=== PATIENT | female | born 1995 | race Caucasian/White ===

== ENCOUNTER 2019-06-30 00:12 | Outpatient (CLI) | payer SELFPAY ==
[~2019-06-30] VITALS: Ht 142.2 cm; Wt 66.4 kg
--- NOTE | 2019-06-30 00:35 | NUR ---
Pt arrived on unit ambulatory escorted by and with complaints of decreased movement. Pt djiboutian speaking only. Via fleet operations manager pt denies contractions, leaking of fluid or vaginal bleeding. Pt reports some lower abdominal pain but reports it as muscle pain after being on her feet all day and not stomach tightening. EFM and toco monitors started. Audible and palable movement while placing monitors. Vital signs WNL. Spoke with Dr. Montoya regarding pt arrival. FHR tracing and pt's complaints reviewed.
--- NOTE | 2019-06-30 01:15 | NUR ---
Pt reports feeling better after hearing heart beat and reports feeling movement since arrival on unit. Update given to Dr. Montoya. Orders for discharge home received.
[2019-06-30 01:26] VITALS: BP 104/64; PULSE 80
[2019-06-30] MEDS ORDERED: PRENATAL (01:32)
--- NOTE | 2019-06-30 01:35 | NUR ---
Discharge instructions reviewed with pt and via promotions producer. Both verbalized an understanding, agreed with the plan and states no questions or concerns at this time.
== END 2019-06-30 01:42 | disposition home or self-care (01) ==
LOC: LDRO 00:12 → COL.ER 00:12 → EDSTATUS 00:14 → LDRO 01:42
DX: O36.8120 Decreased fetal movements, second trimester, not applicable or unspecified (principal); Z3A.27 27 weeks gestation of pregnancy

== ENCOUNTER 2019-08-10 04:26 | Outpatient (CLI) | payer SELFPAY ==
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
[~2019-08-10 04:26] MED LIST: PRENATAL
[2019-08-10 05:10] VITALS: BP 109/69; PULSE 99; TEMP 98.5
--- NOTE | 2019-08-10 05:25 | NUR ---
TEXTURE ARTIST HERE FOR RCPD INTERVIEWING PT
--- NOTE | 2019-08-10 06:45 | NUR ---
DELONTE HAN HAS COMPLETED INTERVIEWING PT. DR NICHOLS SHOWN EFM TRACING.DISCHARGE ORDERS REDCIEVED
== END 2019-08-10 07:10 | disposition home or self-care (01) ==
LOC: LDRO 04:26 → LDR 05:34 → LDRO 07:10
DX: O26.899 Other specified pregnancy related conditions, unspecified trimester (principal); Z3A.00 Weeks of gestation of pregnancy not specified
CPT/HCPCS: OP

== ENCOUNTER 2019-10-04 03:30 | Outpatient (CLI) | payer SELFPAY ==
[~2019-10-04] VITALS: Ht 142.2 cm; Wt 75.5 kg
--- NOTE | 2019-10-04 03:20 | NUR ---
To unit for labor assessment, accompanied by spouse. Pt doesn't speak or understand Romanian, spouse with very limited understanding. With google translate, spouse says "pain and like blood" On monitor. SVE with mucous discharge, amniotrace negative, no pooling. Pt does not tolerate cervix check well, unable to reach cervix.
--- NOTE | 2019-10-04 05:05 | NUR ---
Repeat SVE with no changes. Attempt to explain discharge to spouse, unsuccessful, even with google translate. phone translation line called. Pt very hesitant to talk on phone, spouse tells her it's ok. Discharge instructions reviewd through phone full time staff interpreter.
[2019-10-04 05:50] VITALS: BP 133/85; PULSE 68; TEMP 98.9
--- NOTE | 2019-10-04 05:50 | NUR ---
Ambulatory off unit with spouse.
== END 2019-10-04 05:50 | disposition home or self-care (01) ==
LOC: LDRO 03:30
DX: O26.893 Other specified pregnancy related conditions, third trimester (principal); R52 Pain, unspecified; Z3A.40 40 weeks gestation of pregnancy

== ENCOUNTER 2019-10-04 15:15 | Inpatient (IN) | payer SELFPAY ==
[2019-10-04] VITALS (27 sets, daily range): BP systolic 106–134; BP diastolic 54–94; PULSE 73–144; TEMP 97.6–98.6
[~2019-10-04] VITALS: Ht 142.2 cm; Wt 75.5 kg
--- NOTE | 2019-10-04 15:30 | NUR ---
Pt arrives on unit via wheelchair with spouse. EFM and toco applied. VSS. SVE per this RN /-2. Difficulty translating. Translation phone used. Pt updated on plans for admission. Requests epidural. Admission assessment complete. Consents signed. Pt updated on POC. Oriented to room. No questions or concerns at thiss time.
[2019-10-04 16:16] LABS: BASO % 0.2 % (0.0-2.0); EOS % 0.3 % (0-4.0); GRAN # 6.5 (1.4-6.5); GRAN % 75.4 % (42.2-75.2); HEMOGLOBIN 11.5 g/dl (12.5-16.0); LYMPH # 1.6 (1.2-3.4); LYMPH % 18.1 % (20.0-51.0); MEAN CELL VOLUME 81 fl (80.0-100.0); MEAN CORPUSCULAR HEMOGLOBIN 27 pg (27.0-31.0); MEAN CORPUSCULAR HGB CONC 34 g/dl (33.0-37.0); MEAN PLATELET VOLUME 12.9 fl (7.4-10.4); MONO # 0.5 (0.1-0.6); MONO % 5.4 % (1.7-9.3); PLATELET COUNT 137 K/mm3 (130-400); REDCELL DISTRIBUTION WIDTH-CV 14.4 % (11.5-14.5)
[2019-10-04 16:20] LABS: HEMATOCRIT 33.8 % (37.0-47.0)
--- NOTE | 2019-10-04 16:45 | NUR ---
Anesthesia here, visits with patient.1652 Catheter placed by anesthesia Cielo Sullivan. 1653 Test dose given by anesthesia. Lies down after epidural.
--- NOTE | 2019-10-04 17:25 | NUR ---
Catheter placed per sterile technique.
--- NOTE | 2019-10-04 18:30 | NUR ---
1825: Bedside shift report from Isi Schilling RN. Patient resting quietly in bed. SVE -/80/-2. Roles at nurses station and reviewing FHR and contractions on monitor.
--- NOTE | 2019-10-04 19:30 | NUR ---
0: Pitocin started at 2ml/hr per Dr. Chavez order. Patient resting comfortably in bed. Denies pain.
--- NOTE | 2019-10-04 20:35 | NUR ---
2034: Roles at nurses station and reviews FHR and contraction pattern. Report on SVE and patient resting comfortably.
--- NOTE | 2019-10-04 21:10 | NUR ---
Roles at nurses station and review FHR and contraction pattern. To patient room. SVE per Roles /-1. Pitocin increased to 8ml/hr per Roles verbal order. Patient resting in bed, denies pain but feels pressure in vagina during contractions. remains at bedside and call light in reach.
--- NOTE | 2019-10-04 21:34 | NUR ---
Wallet found at Admissions by Housekeeping, who turned it into Security. Security notified this Appliance Line Assembler, and brought wallet to House Supervisors. Identification in wallet belonged to patient in Labor Room 3. Patient and significant other asked to describe wallet by SOCO Gutierrez. Wallet described. Security listed contents of wallet: 44-$100 dollar bills, 1-$1 dollar bill, 2 keys, Torres Anna identification, Wallace Savita DeSantigago identification. Contents returned to patient and significant other in room by this Appliance Line Assembler, Malcolm Kirk shipping supervisor, and SOCO Gutierrez patient nurse. Patient's significant other counted money with 3 RNs as witnesses. Contents of wallet identical to above description by Security. Patient and significant other satisfied with condition and contents of wallet and money ($[id number]).
--- NOTE | 2019-10-04 21:50 | NUR ---
Patient states she is having pressure in vagina during contractions. SVE 9-10/100/-1. Patient denies pain, just pressure.
--- NOTE | 2019-10-04 22:02 | NUR ---
Roles remains at nurses station and reviews FHR and contraction pattern on FHR monitor
--- NOTE | 2019-10-04 22:20 | NUR ---
Roles in room. JORGE L anterior lip. Patient repositioned to far right lateral and peanut ball placed. patient resting in bed, at bedside.
--- NOTE | 2019-10-04 22:38 | NUR ---
2238: patient shaking. SVE anterior lip noted. Patient repositioned far left lateral and peanut ball repositioned. FHR variable decelerations occuring down to 120 bpm lasting 30-[address] Chavez remains at nurses station watching FHR on monitor.
--- NOTE | 2019-10-04 22:55 | NUR ---
Patient sitting up in bed. Roles at bedside. SVE . Patient begins pushing with contractions.
--- NOTE | 2019-10-04 23:18 | NUR ---
2318: Barbosa catheter removed. Patient continues pushing with contractions. 2330: Patient breathing and uncomfortable through contractions. Chelsey Quick CRNA in room and epidural dosed. Patient rests through next few contractions then begins pushing with contractions at 2335.
--- NOTE | 2019-10-04 23:50 | NUR ---
2350: Spontaneous vaginal delivery of infant head immediately followed by body. nose and mouth suctioned with bulb syringe by Dr. Chavez and to mothers abdomen where attended to by Narciso Holloway RN. Pitocin off. Father of baby cuts umbilical cord with assist from Dr. Chavez. 2355: Spontaneous and intact delivery of placenta. Fundus massaged and firm, down 1 from umbilicus. Pitocin restarted at 333ml/hr. Second degree laceration repaired. Ice pack to perineum. Patient sitting up in bed holding . Parents very loving towards infant. Apgars 9/9/9. EBL 200ml. See labor and delivery summary, doctor dictation and anesthesia records.
[2019-10-05] VITALS (12 sets, daily range): BP systolic 106–138; BP diastolic 42–84; PULSE 64–137; TEMP 98–99
--- NOTE | 2019-10-05 00:05 | NUR ---
Roles at nurses station and report that patient tachycaria. Pulse 137. Vaginal bleeding moderate but fundus firm. No further orders
--- NOTE | 2019-10-05 03:15 | NUR ---
0310: IV to INT. Patient sitting up in bed. Epidural catheter removed, blue tip intact and band aid to site. Patient stands at side of bed and transfers into wheelchair. Patient taken to bathroom where able to void, pericare taught and provided. Patient back in wheelchair. Patient taken to room 218 where oriented to room and call light. Patient able to stand and get into bed independently. Patient resting. Patient rates pain a "3", motrin given. 0330: Patient sitting up in bed. Assisted with .
--- NOTE | 2019-10-05 20:34 | NUR ---
PACIFIER GIVEN NIPPLES SORE- BABY AT BREAST 2 HOURS
[2019-10-06 06:30] VITALS: BP 102/59; PULSE 73; TEMP 98.8
[2019-10-06] MEDS ORDERED: IBU600 MG PO (10:36)
[2019-10-06] MEDS ORDERED: PROCTOZONE-HC2.5% RC (10:38)
== END 2019-10-06 13:40 | disposition home or self-care (01) | DRG 807 ==
LOC: LDRO 15:15 → LDR 15:15 → LDRO 16:22 → LDR 16:22 → OB 10-05 03:30
PROVIDERS: Obstetrics & Gynecology; ADMIT Obstetrics & Gynecology
PROC: 10E0XZZ Delivery of Products of Conception, External Approach (ICD-10-PCS; principal; 2019-10-04)
PROC: 0KQM0ZZ Repair Perineum Muscle, Open Approach (ICD-10-PCS; 2019-10-04)
DX: O48.0 Post-term pregnancy (principal); Z37.0 Single live birth; Z3A.40 40 weeks gestation of pregnancy; O70.1 Second degree perineal laceration during delivery
CPT/HCPCS: J2590; J2795; J7120

== ENCOUNTER 2019-10-11 15:21 | Emergency (ER) | payer SELFPAY ==
[~2019-10-11] VITALS: Ht 152.4 cm; Wt 54.5 kg
[~2019-10-11 15:21] MED LIST changes: +IBU600 MG PO; +PROCTOZONE-HC2.5% RC
[2019-10-11 15:32] VITALS: TEMP 98.8
[2019-10-11 16:10] LABS: COLLECTION METHOD CLEAN CATCH
[2019-10-11 16:28] LABS: ALBUMIN 3.5 gm/dL (3.5-5.0); BILIRUBIN,TOTAL 0.2 mg/dL (0.0-1.0); CALCIUM 9.1 mg/dL (8.4-10.2); CREATININE, serum 0.75 (0.52-1.25); POTASSIUM 4.1 mmol/L (3.4-5.0); TOTAL PROTEIN 6.6 gm/dL (6.4-8.2)
[2019-10-11 16:29] LABS: BASO % 0.1 % (0.0-2.0); EOS # 0.2 (0.0-0.7); EOS % 2.1 % (0-4.0); GRAN # 4.8 (1.4-6.5); GRAN % 68.6 % (42.2-75.2); LYMPH # 1.7 (1.2-3.4); MEAN CELL VOLUME 83 fl (80.0-100.0); MEAN CORPUSCULAR HEMOGLOBIN 28 pg (27.0-31.0); MEAN CORPUSCULAR HGB CONC 34 g/dl (33.0-37.0); MEAN PLATELET VOLUME 10.9 fl (7.4-10.4); MONO # 0.3 (0.1-0.6); MONO % 4.3 % (1.7-9.3); PLATELET COUNT 310 K/mm3 (130-400); RED BLOOD COUNT 3.92 M/mm3 (4.10-5.30); REDCELL DISTRIBUTION WIDTH-CV 15.4 % (11.5-14.5)
[2019-10-11 16:31] LABS: HEMATOCRIT 32.7 % (37.0-47.0)
[2019-10-11 16:36] LABS: MUCOUS Present /lpf; PH 6 (5-8); SQUAMOUS EPITHELIAL 0-2 /hpf; URINE APPEARANCE Hazy; URINE BACTERIA Rare /hpf; URINE BILIRUBIN Negative (NEGATIVE); URINE BLOOD 2+ (NEGATIVE); URINE COLOR Yellow; URINE GLUCOSE Negative (NEGATIVE); URINE KETONE Negative (NEGATIVE); URINE LEUKOCYTE ESTERASE 1+ (NEGATIVE); URINE NITRATE Negative (NEGATIVE); URINE PROTEIN(semi-quant) Negative (NEGATIVE); URINE UROBILINOGEN Negative (NEGATIVE)
[2019-10-11 16:56] LABS: ERYTHROCYTE SEDIMENTATION RATE 15 mm/hr (0-20)
[2019-10-11] MEDS ORDERED: CEPHALEXIN500 M1 PO (17:12)
[2019-10-11 17:46] VITALS: BP 119/79; PULSE 75
== END 2019-10-11 17:48 | disposition home or self-care (01) ==
LOC: COL.ER 15:21
PROVIDERS: Physician Assistant
DX: N39.0 Urinary tract infection, site not specified (principal); M54.31 Sciatica, right side

== ENCOUNTER 2021-06-15 06:36 | Inpatient (IN) | payer SELFPAY ==
[~2021-06-15] VITALS: Ht 144.8 cm; Wt 77.3 kg
[2021-06-15] VITALS (31 sets, daily range): BP systolic 89–135; BP diastolic 50–80; PULSE 61–92; TEMP 97.8–98.2
[~2021-06-15 06:36] MED LIST changes: +CEPHALEXIN500 M1 PO; +TRIAMC 0.025 80 TOP
--- NOTE | 2021-06-15 07:00 | NUR ---
0645- Pt arrives on unit via wheelchair with complaints of contractions every 6 mins. Pt into bathroom to change into gown. Pt citizen of [place] speaking, this RN to nurses station to call emergency services professional service. 0651- Pt into bed, EFM and TOCO applied. AXEL. JORGE L /. Supervisor Fabrication used to do admission assessment and discuss POC.
--- NOTE | 2021-06-15 07:30 | NUR ---
0714- Recurrent, subtle late decels noted, decreasing 5-10 beats from baseline. Pt repositioned to LL.
--- NOTE | 2021-06-15 08:15 | NUR ---
0815- Report given to SOCO Kaiser, she assumes care at this time.
[2021-06-15 09:00] LABS: BASO % 0.3 % (0.0-2.0); EOS # 0.1 K/mm3 (0.0-0.7); EOS % 0.8 % (0.0-4.0); GRAN # 5.2 K/mm3 (1.4-6.5); GRAN % 71.2 % (42.2-75.2); HEMATOCRIT 37.9 % (37.0-47.0); HEMOGLOBIN 12.8 g/dl (12.5-16.0); LYMPH # 1.6 K/mm3 (1.2-3.4); LYMPH % 21.8 % (20.0-51.0); MEAN CELL VOLUME 80 fl (80.0-100.0); MEAN CORPUSCULAR HEMOGLOBIN 27 pg (27-31); MEAN CORPUSCULAR HGB CONC 34 g/dl (33.0-37.0); MEAN PLATELET VOLUME 12.9 fl (7.4-10.4); MONO # 0.4 K/mm3 (0.1-0.6); MONO % 5.5 % (1.7-9.3); PLATELET COUNT 159 K/mm3 (130-400); RED BLOOD COUNT 4.75 M/mm3 (4.10-5.30); REDCELL DISTRIBUTION WIDTH-CV 13.4 % (11.5-14.5)
--- NOTE | 2021-06-15 10:09 | NUR ---
1000 PATIENT UP TO BATHROOM TO HAVE BM. TOLERATE WELL. SVE /-2. PATIENT DOES NOT WANT EPIDURAL AT THIS TIME. COMMUNICATION WITH RECORDS MANAGEMENT SPECIALIST
--- NOTE | 2021-06-15 11:53 | NUR ---
1050 PATIENT IN TEARS AND STATES PATIENT READY FOR EPIDURAL. ASSIST PATIENT TO SITTING UP JASPREET CONTROL OFFICER MANAGER CALLED FOR EPIDURAL PLACEMENT. 1056 PATIENT TOLERATES EPIDURAL PLACEMNT WELL , SEE CONTROL OFFICER MANAGER NOTES FOR QUESTIONS. SINLE SHOT AT THIS TIME,
--- NOTE | 2021-06-15 12:07 | NUR ---
[address] BARON CALLED AND UPDATED. STATES WILL HEAD IN SOON.
--- NOTE | 2021-06-15 13:33 | NUR ---
1230 PATIENT COMPLETE WILL START PUSHING.
--- NOTE | 2021-06-15 13:58 | NUR ---
1245 PATIENT PUSHING ON RIGHT SIDE. 1300 REPOSITIONED PATIENT AND PUSHING WELL. 13[address] BABY [address]IA BY [address] BARON. CORD CLAMPED AND CUT, BABY TO MOMS CHEST. TOLERTES WELL. STRONG CRY NOTED. 1313 PLACENTA DELIVERED AND PITOCIN STARTED AT 333/HR. FUNDUS FIRM AND BLEEDING WNL. DENIES NEEDS. SMALL REPAIR NOTED BY DR BARON, PATIENT TOLERATES WELL. AND OTHER CHILD AT BEDSIDE.
--- NOTE | 2021-06-15 23:45 | NUR ---
2345-Patient's BP is low after few attempts of retake. Patient is asymptomatic and reports feeling well. Will continue to monitor. Call light within reach.
[2021-06-16 04:30] VITALS: BP 90/52; PULSE 72; TEMP 98.4
[2021-06-16 07:28] VITALS: BP 114/68; PULSE 76; TEMP 98.2
[2021-06-16] MEDS ORDERED: MOTRIN 800800 MG/TAB PO (07:57)
--- NOTE | 2021-06-16 09:02 | NUR ---
Initial visit attempt; Family resting, Pmo Lead left card of congratulations for the of their son and information regarding the availability of spiritual care at our hospital.
== END 2021-06-16 14:40 | disposition home or self-care (01) | DRG 807 ==
LOC: LDRO 06:36 → LDR 06:45 → LDRO 08:15 → OB 08:15 → LDR 08:15 → OB 16:20
PROVIDERS: ADMIT Obstetrics & Gynecology
PROC: 10E0XZZ Delivery of Products of Conception, External Approach (ICD-10-PCS; principal; 2021-06-15)
PROC: 0KQM0ZZ Repair Perineum Muscle, Open Approach (ICD-10-PCS; 2021-06-15)
PROC: 10907ZC Drainage of Amniotic Fluid, Therapeutic from Products of Conception, Via Natural or Artificial Opening (ICD-10-PCS; 2021-06-15)
DX: O76 Abnormality in fetal heart rate and rhythm complicating labor and delivery (principal); Z37.0 Single live birth; O70.1 Second degree perineal laceration during delivery; Z3A.40 40 weeks gestation of pregnancy; Z28.21 Immunization not carried out because of patient refusal
CPT/HCPCS: J2590; J7120

== ENCOUNTER 2021-07-13 13:52 | Emergency (ER) | payer MEDICAID ==
[~2021-07-13] VITALS: Ht 152.4 cm; Wt 74.5 kg
[~2021-07-13 13:52] MED LIST changes: +MOTRIN 800800 MG/TAB PO
[2021-07-13 14:28] VITALS: TEMP 97.8
[2021-07-13 14:57] VITALS: BP 111/67; PULSE 64
== END 2021-07-13 15:05 | disposition home or self-care (01) ==
LOC: COL.ER 13:52
DX: O92.29 Other disorders of breast associated with pregnancy and the puerperium (principal)